=== PATIENT | male | born 1995 | race Caucasian/White ===

== ENCOUNTER 2022-01-12 18:20 | Emergency (ER) | payer OTHER, SELFPAY ==
--- NOTE | ~2022-01-12 | CT_ITS ---
EXAMINATION: CT brain wo con DATE: 01/12/2022 19:10 INDICATION: left frontal forehead laceration, head injury . TECHNIQUE: Computed tomography (CT) of the head was performed without intravenous contrast. The mA wa s adjusted according to patient size. Iterative reconstruction technique was employed. The dose-lengt h product was 681.00 mGy-cm. COMPARISON: None FINDINGS: No acute intracranial hemorrhage or extra-axial fluid collection. No hydrocephalus, mass, or herniation. No acute ischemic infarct. Unremarkable dural venous sinus attenuation. No acute osseous abnormality. Mild left scalp contusion and laceration. Orbits and globes intact. The aerated spaces are clear. IMPRESSION: No acute intracranial process. Reviewed, dictated and finalized at location K.
[2022-01-12 18:30] VITALS: BP 124/95; PULSE 95; RESP 18; TEMP 36.7; O2SAT 98
[2022-01-12] MEDS: IBUPROFEN 400 MG TABLET 800 MG PO (19:02)
[2022-01-12] MEDS: LIDOCAINE HCL 2% PF INJ 5 ML VIAL 3 ML INFILTRATE (19:35)
--- NOTE | 2022-01-12 19:55 | PC.NURSE ---
sutures covered with triple antibiotic and band aid per ERP
--- NOTE | 2022-01-12 19:56 | ED.WOUNDLAC ---
HPI - Wound/Laceration General Chief Complaint: Wound/Laceration Stated Complaint: cut head open Time Seen by Provider: 01/12/22 18:24 Source: patient and RN notes reviewed Mode of arrival: ambulatory Limitations: no limitations History of Present Illness Onset (ago): hour(s) (6) Location: face (left forehead 1.5 cm gaping laceration. ) Patient tetanus UTD: No Context: accidental Associated symptoms: none Related Data Home Medications Medication Instructions Recorded Confirmed No Home Medications 01/12/22 01/12/22 Allergies Allergy/AdvReac Type Severity Reaction Status Date / Time No Known Allergies Allergy Verified 01/12/22 18:37 Review of Systems Review of Systems: left forehead laceration All systems reviewed & are unremarkable except as noted in HPI and below Constitutional: Constitutional: Reports no additional constitutional complaints Eyes: Eyes: Reports no additional eye complaints ENT: Reports system reviewed and no additional complaints, except as documented Cardiovascular: Cardiovascular: Reports no additional cardiovascular complaints Respiratory: Respiratory: Reports no additional respiratory complaints Gastrointestinal: Gastrointestinal: Reports no additional gastrointestinal complaints Musculoskeletal: Musculoskeletal: Reports no additional musculoskeletal complaints Integumentary/Breasts: Skin/Breast: Reports system reviewed and no additional complaints, except as docu Neurologic: Reports system reviewed and no additional complaints, except as documented Psychiatric: Psychiatric: Reports no additional psychiatric complaints Endocrine: Endocrine: Reports no additional endocrine complaints Hematologic/Lymphatic: Hematologic/Lymphatic: Reports no additional hematologic/lymphatic complaints Allergic/Immunologic: Allergic/Immunologic: Reports no additional allergic/immunologic complaints PMFSH Past Medical History Medical History (Updated 01/12/22 @ 20:23 by Carin Rob MD) Head injury Laceration Exam Const: General: healthy appearing and no acute distress Nutritional Appearance: well nourished Orientation/consciousness: patient oriented x3 Limitations: no limitations HENMT: Head: normal to inspection Ears: external ears normal, TM's normal bilaterally and EAC's normal General nose exam: Normal external nose present and Normal nares present Face and sinus: normal facial exam and sinuses nontender Mouth: Yes Normal oral and palatal mucosa present and Yes moist mucous membranes Teeth and gingiva: dentition normal Throat: posterior oropharynx normal Other: left forehead laceration 1.5 cm. Eyes: Conjunctivae: conjunctivae normal Pupils: Equal, round and reactive pupils present EOM: EOMs intact bilaterally Neck: Neck: normal visual inspection, no lymphadenopathy and no meningeal signs Chest: Chest palpation & inspection: normal inspection of the chest Resp: Effort & Inspection: normal respiratory effort Auscultation: clear to auscultation bilaterally Cardio: Rate: regular rate Rhythm: regular rhythm GI: GI Palp: Yes Soft to palpation and No Tenderness to palpation present (GI) Auscultation: normal bowel sounds : General: Yes bladder normal to palpation and Yes no CVA tenderness Back/Spine/Pelvis: Back: no CVA tenderness Skin: General skin exam: normal color Rashes: no rashes Wounds: no wounds Neuro: General: patient oriented x3, moves all extremities, no meningeal signs, no focal motor deficits and CN's II-XI intact bilaterally Cranial nerves: Yes Equal, round and reactive pupils present and Yes Nystagmus not present Speech: normal speech Gait exam (Neuro): Normal gait present Extrem: General: normal to inspection and no pedal edema Psych: Mental Status: mental status grossly normal Affect: normal affect Attitude: cooperative Course Course Emergency Course: Pt was stable in the ED. less painful, post laceration repair. Reevaluation(
[2022-01-12 20:01] VITALS: BP 119/78; PULSE 68; RESP 16; O2SAT 98
== END 2022-01-12 20:01 | disposition home or self-care (01) ==
PROVIDERS: Emergency Provider Emergency Medicine
DX: S01.01XA Laceration without foreign body of scalp, initial encounter (principal)
CPT/HCPCS: 12011; 70450; 99284; A9270

== ENCOUNTER 2022-07-14 10:47 | Emergency (ER) | payer BC, MEDICAID, SELFPAY ==
[2022-07-14] VITALS (11 sets, daily range): BP systolic 109–125; BP diastolic 60–82; PULSE 72–104; RESP 11–20; TEMP 36.2–36.4; O2SAT 96–97
--- NOTE | 2022-07-14 10:54 | ECG_ITS ---
Measurements Intervals [place] Rate: 87 P: 58 IA: 135 QRS: 85 QRSD: 89 T: 42 QT: 362 QTc: 437 Interpretive Statements SINUS RHYTHM NO PREVIOUS ECG AVAILABLE FOR COMPARISON Electronically Signed On 07-14-2022 20:07:20 [employer]AL[employer] by Jess Davidson M.D.
--- NOTE | 2022-07-14 11:08 | PC.NURSE ---
patient denies any sucidal ideation or attempt, ERP states patient must be evaluated due to the nature of the text message sent to girlfriend shown by PD.
--- NOTE | 2022-07-14 11:09 | PC.NURSE ---
poison control called, states monitor him for 4 hours since ingestion at 1000. labs and test order per their request.
--- NOTE | 2022-07-14 11:25 | PC.NURSE ---
patient educated on the need for cooperation to get blood work due to overdose.
--- NOTE | 2022-07-14 11:37 | ED.PSYCH ---
HPI - Psych General Chief Complaint: Psychiatric Symptoms Stated Complaint: overdose Time Seen by Provider: 07/14/22 10:53 Source: patient and EMS Mode of arrival: EMS Limitations: no limitations History of Present Illness HPI Narrative: this is a 7-year-old gentleman that was brought in by EMS with suicidal ideation, or intent of suicide, after he texted his girlfriend and mentioned over the text that maybe better off without /are they do not to worry about him any longer. Apparently the patient took trazodone, the patient himself states that he took it to help him sleep. Currently denies any shortness of breath no chest pain no fever chills no abdominal pain no nausea vomiting. complaint: suicidal ideation Onset (ago): hour(s) Duration: changing over time Related Data Home Medications Medication Instructions Recorded Confirmed trazodone 100 mg tablet 100 mg PO QHS 03/21/22 07/14/22 Allergies Allergy/AdvReac Type Severity Reaction Status Date / Time No Known Allergies Allergy Verified 07/14/22 12:17 Review of Systems Review of Systems: All systems reviewed & are unremarkable except as noted in HPI and below PMFSH Past Medical History Medical History Head injury Laceration Social History Social History Smoking status: Current every day smoker Exam Const: General: healthy appearing and no acute distress Nutritional Appearance: well nourished Limitations: no limitations HENMT: Head: normal to inspection Face/Nose/Sinus: Normal external nose present Face and sinus: normal facial exam Mouth: Yes Normal oral and palatal mucosa present Eyes: Conjunctivae: conjunctivae normal EOM: EOMs intact bilaterally Neck: Neck: normal visual inspection Chest: Chest palpation & inspection: normal inspection of the chest Resp: Effort & Inspection: normal respiratory effort Auscultation: clear to auscultation bilaterally Cardio: Rate: regular rate Rhythm: regular rhythm GI: GI Palp: Yes Soft to palpation Auscultation: normal bowel sounds : General: Yes bladder normal to palpation Urinary Catheter: Urinary Catheter: patent and draining Skin: General skin exam: normal color Rashes: no rashes Wounds: no wounds Neuro: General: patient oriented x3, moves all extremities, no meningeal signs and no focal motor deficits Extrem: General: normal to inspection and no clubbing, cyanosis or edema Psych: Mental Status: mental status grossly normal Other: Confrontational affect /anxious Course Course Emergency Course: labs EKG reviewed with patient and mental health cleared patient and is able to discharge home after he is evaluated and monitored for 4hours after he took trazodone earlier today. Vital Signs Vital signs: Vital Signs Temperature 36.2 C L 07/14/22 11:04 Pulse Rate 104 H 07/14/22 11:04 Respiratory Rate 16 07/14/22 11:04 Blood Pressure 125/82 07/14/22 11:04 Pulse Oximetry 96 07/14/22 11:04 Oxygen Delivery Room Air 07/14/22 11:04 Temperature 36.2 C L 07/14/22 11:04 Pulse Rate 72 07/14/22 13:32 Respiratory Rate 11 L 07/14/22 13:32 Blood Pressure 116/78 07/14/22 11:30 Pulse Oximetry 96 07/14/22 12:57 Oxygen Delivery Room Air 07/14/22 11:04 MDM - Psych Lab Data 07/14/22 11:34 07/14/22 11:34 Labs: Lab Results 07/14/22 07/14/22 07/14/22 Range/Units 10:53 11:34 11:34 WBC 7.1 (4.8-10.8) K/mm3 RBC 4.93 (4.70-6.10) M/mm3 Hgb 14.8 (14.0-18.0) g/dL Hct 41.7 (40.0-54.0) % MCV 84.6 (78.0-102.0) fL MCH 30.0 (27.0-31.0) pg MCHC 35.5 (32.0-36.0) g/dL RDW 12.8 (11.6-14.4) % Plt Count 290 (150-420) K/mm3 MPV 8.5 L (8.7-11.0) fl Immature Gran % (Auto) 0.3 H (0.0-0.0) % Neut % (Auto) 60.2 (50.0-70.0) % Lymph % (Auto) 30.7 (18.0-42.0) % Mon
[2022-07-14 11:39] LABS: Basophils Absolute Auto 0.01 K/mm3 (0.00-0.10); Basophils Percent Auto 0.1 % (0.0-1.0); Eosinophils Absolute Auto 0.07 K/mm3 (0.02-0.50); Hematocrit 41.7 % (40.0-54.0); Hemoglobin 14.8 g/dL (14.0-18.0); Immature Granulocyte Absolute 0.02 K/mm3 (0.00-0.00); Immature Granulocyte Percent A 0.3 % (0.0-0.0); Lymphocytes Absolute Auto 2.19 K/mm3 (1.10-4.50); Lymphocytes Percent Auto 30.7 % (18.0-42.0); Mean Corpuscular HGB Conc 35.5 g/dL (32.0-36.0); Mean Corpuscular Volume 84.6 fL (78.0-102.0); Mean Platelet Volume 8.5 fl (8.7-11.0); Monocytes Absolute Auto 0.55 K/mm3 (0.10-0.90); Monocytes Percent Auto 7.7 % (2.0-11.0); Neutrophils Absolute Auto 4.3 K/mm3 (1.7-7.2); Neutrophils Percent Auto 60.2 % (50.0-70.0); Platelet Count Result 290 K/mm3 (150-420); Red Blood Count 4.93 M/mm3 (4.70-6.10); Red Cell Distribution Width 12.8 % (11.6-14.4); White Blood Count 7.1 K/mm3 (4.8-10.8)
[2022-07-14 12:07] LABS: Alanine Aminotransferase 26 U/L (16-63); Albumin Level 4.6 g/dL (3.4-5.0); Alkaline Phosphatase 79 U/L (46-116); Anion Gap 11 mmol/L (8-16); Aspartate Amino Transferase 27 U/L (15-37); Bilirubin,Total 0.9 mg/dL (0.00-1.00); Blood Urea Nitrogen 16 mg/dL (7-18); Carbon Dioxide 25 mmol/L (21-32); Chloride 102 mmol/L (98-108); Estimated Glomerular Filt Rate > 60; Ethanol < 3 mg/dL (0-6); Glucose 93 mg/dL (70-99); Osmolality Calculated 287 mOsm/kg (285-295); Salicylate 0.4 mg/dL (2.8-20.0); Sodium 138 mmol/L (136-145); Thyroid Stimulating Hormone 1.12 uIU/mL (0.36-3.74); Total Protein 8.3 g/dL (6.4-8.2)
[2022-07-14 12:08] LABS: Acetaminophen < 2 ug/mL (10-30)
[2022-07-14 12:13] LABS: SARS-CoV-2 RNA PCR Negative (Negative)
--- NOTE | 2022-07-14 12:17 | PC.NURSE ---
[facility] at bedside.
--- NOTE | 2022-07-14 12:52 | PC.NURSE ---
[facility] has decided to safety plan patient and deflect home. patient verbalized understanding of follow up instructions.
--- NOTE | 2022-07-14 13:31 | PC.NURSE ---
lizeth from poison control called, states patient is cleared by them at 4 hours from time of ingestion at 1000.
== END 2022-07-14 14:27 | disposition home or self-care (01) ==
PROVIDERS: Emergency Provider Emergency Medicine; PCP Nurse Practitioner Family
DX: R45.851 Suicidal ideations (principal); F17.200 Nicotine dependence, unspecified, uncomplicated; Z20.822 Contact with and (suspected) exposure to COVID-19
CPT/HCPCS: 36415; 80053; 80307; 84443; 85025; 93005; 99284; U0003; U0005

== ENCOUNTER 2022-09-19 20:20 | Emergency (ER) | payer BC, MEDICAID, SELFPAY ==
--- NOTE | ~2022-09-19 | CT_ITS ---
EXAMINATION: CT lumbar spine wo con DATE: 09/19/2022 21:04 INDICATION: Low back pain. TECHNIQUE: Computed tomography (CT) of the lumbar spine was performed without intravenous contrast. A utomated exposure control and iterative reconstruction technique were employed. The dose-length produ ct was 312.37 mGy-cm. COMPARISON: None FINDINGS: Bone alignment is normal. Vertebral body heights are normal. There is mildly decreased disc height at L5-S1. The following disc levels are specifically discussed: L1-L2: There is a central protrusion. There is mild bilateral facet joint osteoarthritis. There is no neural foraminal stenosis. There is mild central canal stenosis. L2-L3: The disc does not extend beyond the endplate margin. There is mild bilateral facet joint osteo arthritis. There is no neural foraminal stenosis. There is no central canal stenosis. L3-L4: The disc does not extend beyond the endplate margin. There is no facet joint osteoarthritis. T here is no neural foraminal stenosis. There is no central canal stenosis. L4-L5: The disc is bulging. There is no facet joint osteoarthritis. There is mild bilateral neural fo raminal stenosis. There is mild central canal stenosis. L5-S1: The disc is bulging. There is mild bilateral facet joint osteoarthritis. There is mild bilater al neural foraminal stenosis. There is mild central canal stenosis. IMPRESSION: 1. Mild lumbar spondylosis. Reviewed, dictated and finalized at location A. SALESPERSON IMPRESSION: 1. Mild lumbar spondylosis.
[2022-09-19 20:25] VITALS: BP 124/62; PULSE 98; RESP 18; TEMP 36.9; O2SAT 99
--- NOTE | 2022-09-19 20:33 | ED.BACK ---
HPI - Back Pain/Injury General Chief Complaint: Back Pain/Injury Stated Complaint: lower back pain Time Seen by Provider: 09/19/22 20:33 Source: patient Mode of arrival: ambulatory History of Present Illness HPI Narrative: 27-year-old male with history of ADHD, meth abuse in the past presents to the ER with -- low back pain radiating down left thigh. He had an episode 2 months ago which resolved spontaneously. His pain started yesterday in the lower back and is currently radiating down his left thigh up to his knee. No fever. No bladder or bowel problems. No paresthesias going down his leg. No history of lifting heavy weights. No recent trauma. MD elicited complaint: back pain Pertinent past history: prior back pain Onset (ago): day(s) ( Current episode started yesterday.) Timing: constant Severity: moderate Pain scale (0-10): 7 Location: lumbar spine Radiation: left upper leg Exacerbating factors: movement and coughing/sneezing Relieving factors: immobilization Associated symptoms: denies other symptoms and difficulty walking Related Data Allergies Allergy/AdvReac Type Severity Reaction Status Date / Time No Known Allergies Allergy Verified 07/14/22 12:17 Review of Systems Review of Systems: All systems reviewed & are unremarkable except as noted in HPI and below Constitutional: Constitutional: Reports as per HPI and Reports no additional constitutional complaints Eyes: Eyes: Reports as per HPI and Reports no additional eye complaints ENT: Reports system reviewed and no additional complaints, except as documented and Reports as per HPI Cardiovascular: Cardiovascular: Reports as per HPI and Reports no additional cardiovascular complaints Respiratory: Respiratory: Reports as per HPI and Reports no additional respiratory complaints Gastrointestinal: Gastrointestinal: Reports as per HPI and Reports no additional gastrointestinal complaints Genitourinary: Genitourinary: Reports no additional male genitourinary complaints and Reports as per HPI Musculoskeletal: Musculoskeletal: Reports no additional musculoskeletal complaints, Reports as per HPI and Reports back pain Comments: Low back pain radiating to the left thigh and knee Integumentary/Breasts: Skin/Breast: Reports system reviewed and no additional complaints, except as docu and Reports as per HPI Neurologic: Reports system reviewed and no additional complaints, except as documented and Reports as per HPI Psychiatric: Psychiatric: Reports no additional psychiatric complaints and Reports as per HPI Endocrine: Endocrine: Reports no additional endocrine complaints and Reports as per HPI Hematologic/Lymphatic: Hematologic/Lymphatic: Reports no additional hematologic/lymphatic complaints and Reports as per HPI Allergic/Immunologic: Allergic/Immunologic: Reports no additional allergic/immunologic complaints and Reports as per HPI [facility] Past Medical History Medical History Head injury Laceration Social History Social History Smoking status: Current every day smoker Substance use type: amphetamines and prescription drug Exam Const: General: no acute distress Orientation/consciousness: patient oriented x3 Limitations: no limitations HENMT: Head: normal to inspection Ears: external ears normal Face/Nose/Sinus: Normal external nose present Face and sinus: normal facial exam Mouth: Yes Normal oral and palatal mucosa present Throat: posterior oropharynx normal Eyes: Conjunctivae: conjunctivae normal Pupils: Equal, round and reactive pupils present EOM: EOMs intact bilaterally Direct Ophthalmoscopy: no photophobia Neck: Neck: normal visual inspection, no lymphadenopathy and no meningeal signs Chest: Chest palpation & inspection: normal inspection of the chest Resp: Effort & Inspection: normal respiratory effort Auscultation: clear
[2022-09-19] MEDS: HYDROcodone/acetaminophen (*CRX) 5-325 MG TABLET 1 TAB PO (21:42)
[2022-09-19] MEDS: ONDANSETRON HCL ODT 4 MG TABLET PO (21:42)
[2022-09-19] MEDS: KETOROLAC 30 MG/ML VIAL (*BKC) IM (21:42)
[2022-09-19] MEDS: methylPREDNISolone SOD SUCC 125 MG VIAL IM (21:43)
[2022-09-19 22:09] VITALS: BP 123/71; PULSE 84; RESP 20; TEMP 36.6; O2SAT 100
== END 2022-09-19 22:10 | disposition home or self-care (01) ==
PROVIDERS: Emergency Provider Internal Medicine Critical Care Medicine; PCP Nurse Practitioner Family
DX: M51.16 Intervertebral disc disorders with radiculopathy, lumbar region (principal); F17.200 Nicotine dependence, unspecified, uncomplicated
CPT/HCPCS: 72131; 96372; 99284; A9270; J1885; J2930

== ENCOUNTER 2022-10-20 17:01 | Outpatient (RCR) | payer MEDICAID, SELFPAY ==
--- NOTE | 2022-10-20 17:53 | PTOPEVAL1 ---
Assessment and note entered by JT [employer], PT Evaluation Information Assessment Status Evaluation Diagnosis lumbago Onset 10/11/22 Subjective Information patient reports he has been having pain in the lower back. he reports he got a new mattress and has since been in back pain. he reports a CT reveals 2 bulging discs in his lower back. he reports he has increased pain with getting up from the couch, bending over to put pants and shoes on , and bending activities for toileting and hygeine . he reports he does like to walk. he reports he did work on a roof recently and reports his back pain was less for a few days. he reports he did initially have pain from the back down to the knee , but this has resolved now. he reports he was put on a mm relaxor and an anti-inflamatory. Reported Pain Level Pain Score 0: Self Report Assessment PT Clinical Summary mr. peralta is a 27 yo man who presents to skilled PT services for evaluation and treatment of lower back pain. he presents this date with acute discoid type back pain. his pain has been getting progressively better, but is still lacking ability to return to prior level functional activities. he would benefit from skilled PT services to improve his objective/functional deficits and progress towards a return to his prior level functional activity performance/quality of life. Plan of Care Interventions Electrical Stimulation,Hot Pack/Cold Pack,Manual Therapy,Mechanical Traction,Neuro Re-education, Patient/Caregiver Educati,Therapeutic Activities, Therapeutic Exercise PT Services Indicated Yes Treatment Frequency and 2x weekly for 6 visits Duration These treatments will address the objective and functional deficits as defined above. The patient will be advanced safely and appropriately in order for the patient to progress towards his/her prior level of function. Additional exercises will be introduced and as well as a comprehensive home exercise program upon discharge, if needed, ?to ensure carryover of functional gains achieved in the clinic. This treatment plan has been reviewed and agreement upon by the patient.
== END 2022-10-28 23:59 | disposition home or self-care (01) ==
LOC: CHSPT 17:01
PROVIDERS: PCP Nurse Practitioner Family; Visit Provider Nurse Practitioner Family
DX: M54.50 Low back pain, unspecified (principal); M51.36 Other intervertebral disc degeneration, lumbar region
CPT/HCPCS: 97014; 97110; 97161; G0283